=== PATIENT | female | born 1945 ===

== ENCOUNTER → 2025-03-26 14:17 | Outpatient (REF) | payer MEDICARE, SELFPAY | LOC: RAD 14:17 | PROVIDERS: ATTENDING PHYSICIAN Podiatrist Primary Podiatric Medicine; FAMILY PHYSICIAN Internal Medicine | DX: G57.53 Tarsal tunnel syndrome, bilateral lower limbs (principal); M79.671 Pain in right foot; M76.822 Posterior tibial tendinitis, left leg; M76.821 Posterior tibial tendinitis, right leg | CPT/HCPCS: 73630; 95886; 95911 ==